=== PATIENT | female | born 1960 | race Caucasian/White ===

== ENCOUNTER → 2024-06-04 10:46 | Outpatient (CLI) | payer MEDICARE, OTHER, SELFPAY ==
--- NOTE | 2024-06-04 10:50 | DI.MRI.S_ITS ---
PROCEDURE: MR FOOT RT WO/W CON INDICATIONS: lesion of plantar nerve, metatarsalgia right foot TECHNIQUE: Multiphasic, multisequence MRI of the forefoot was performed, before and after intravenous contrast administration. COMPARISON: None. FINDINGS: Image quality: Excellent. Bones and joints: Moderate sized subchondral cystic changes at the 1st phalangeal base, favoring degenerative. The tibial and the fibula hallucal sesamoid are unremarkable. There is mild cystic changes with marrow edema in the 2nd and 3rd metatarsal base, extending distally to the proximal diaphysis, nonspecific and may be degenerative. Mild degenerative change of the 1st tarsometatarsal joint. No acute fracture. Soft tissues: The Lisfranc ligament is intact. The visualized plantar fascia is unremarkable. Muscles are normal in signal. The flexors, and the extensor tendons are unremarkable. Mild 1st, 2nd, and 3rd intermetatarsal bursitis. No Magaña's neuroma. IMPRESSION: 1. Mild 1st, 2nd and 3rd intermetatarsal bursitis. No Magaña's neuroma. 2. Mild cystic changes with diffuse marrow edema at the 2nd and 3rd metatarsal base, extending distally to the proximal diaphysis, nonspecific and may be degenerative. Dictated by: Anya Higgins M.D. on 06/04/2024 at 14:08 Approved by: Anya Higgins M.D. on 06/04/2024 at 14:17
== END ==
PROVIDERS: Referring Provider Podiatrist Foot & Ankle Surgery; Visit Provider Podiatrist Foot & Ankle Surgery
DX: M71.571 Other bursitis, not elsewhere classified, right ankle and foot (principal); G57.61 Lesion of plantar nerve, right lower limb
CPT/HCPCS: 73720; A9579